=== PATIENT | male | born 1975 | race Two or more races ===

== ENCOUNTER 2025-05-05 10:00 | Inpatient (IN) | payer OTHER ==
[~2025-05-05] VITALS: Ht 172.7 cm; Wt 122.5 kg
[~2025-05-05 10:00] MED LIST: AVELOX ABC PAC400 MG PO; COZAAR50 MG; HUMALOG100 U/ML; LANTUS100 U/ML; METFORMIN HCL1000 MG; NASONEX17 GM NS; TYLENOL32 MG/ML PO
--- NOTE | 2025-05-05 10:10 | NUR ---
SE RECIBE PTE ALERTA Y ORIENTADO X3 QUIEN REFIERE TENER UN ABSCESO EN EL TESTICULO DERECHO. PTE REFIERE LLEVAR 5 KINNEY CON EL SHELBY QUE RON EMPEORADO. SE MIDEN S/V Y SE UBICA.
[2025-05-05] MEDS ORDERED: ONDANSETRON HCL 2 MG/ML VIAL ONE (10:42)
[2025-05-05] MEDS ORDERED: FAMOTIDINE/PF 20 MG/2 ML VIAL ONE (10:43)
[2025-05-05] MEDS ORDERED: PIPERACILLIN/TAZOBACTAM SODIUM 3.375 GM VIAL IV ONE ×2 (10:43→17:51)
[2025-05-05] MEDS ORDERED: FAMOTIDINE/PF 20 MG/2 ML VIAL IV ONE (10:45)
[2025-05-05] MEDS ORDERED: 0.9 % SODIUM CHLORIDE 1,000 ML IV ONE (10:45)
[2025-05-05] MEDS ORDERED: ONDANSETRON HCL 4 MG in DEXTROSE 5 % IN WATER 50 ML IV PRN (10:45)
[2025-05-05] MEDS ORDERED: MORPHINE SULFATE 4 MG/ML VIAL IV PRN (10:45)
--- NOTE | 2025-05-05 11:17 | NUR ---
SE EDUCA PTE SOBRE TX Y EL MISMO REFIERE ENTENDER Y ACEPTAR. SE PROCEDE A COLECTAR MUESTRAS DE LABORATORIO Y CANALIZAR BAJO MEDIDAS ASEPTICAS. SE ADMINISTRAN MEDICAMENTOS JUAN ORDEN MEDICA Y SE ENTREGA ENVASE PARA U/A. SE SHANIA EN BETHANY CON BARANDAS ELEVADAS Y NIVEL MAS BAJO DE LA MISMA.
[2025-05-05 11:20] LABS: BASO % 0.4 % (0.1-1.2); EOS # 0.13 (0.04-0.54); EOS % 0.9 % (0.7-7.0); LYMPH # 1.85 (1.18-3.74); LYMPH % 12.5 % (19.3-53.1); MEAN PLATELET VOLUME 10.00 fl (9.4-12.4); MONO # 0.84 (0.24-0.82); MONO % 5.7 % (4.7-12.5); NEUT # 11.83 (1.56-6.13); NEUT % 80.2 % (34.0-71.1); RED CELL DISTRIBUTION WIDTH 11.8 % (11.6-14.4)
[2025-05-05 11:33] LABS: ERYTHROCYTE SEDIMENTATION RATE 36 mm/hr (0-15)
[2025-05-05 11:50] LABS: INR 0.95
[2025-05-05] MEDS ORDERED: PIPERACILLIN/TAZOBACTAM SODIUM 3.375 GM in DEXTROSE 5 % IN WATER 100 ML IV SCH (12:00)
[2025-05-05 12:06] LABS: ALT/SGPT 21.0 U/L (12-78); AST/SGOT 9.0 U/L (15-37); BILIRUBIN TOTAL 0.49 mg/dL (0.3-1.2); BUN CREA RATIO 16.0 (7.0-25.0); CREATININE SERUM 1.03 mg/dL (0.70-1.30); GFR 77.41; GLOBULINA 3.4 G/DL (2.4-3.5)
[2025-05-05 12:14] LABS: OSMOLALITY SERUM 291.0 MOSM/KG (275-295)
[2025-05-05 12:15] LABS: GLUCOSE FASTING 415.0 mg/dL (65-100)
[2025-05-05] MEDS ORDERED: INSULIN LISPRO 1,000 UNIT/10 ML UNITS SUBCUTANEO PRN ×2 (12:30→19:30)
[2025-05-05] MEDS ORDERED: DEXTROSE 50 % IN WATER 0.5 G/ML DISP.SYRIN IV PRN ×2 (12:30→19:30)
[2025-05-05 12:31] LABS: URINE APPEARANCE Clear; URINE BILIRRUBIN Negative (NEGATIVE); URINE BLOOD Negative; URINE COLOR Yellow; URINE KETONE Trace (NEGATIVE); URINE LEUKOCYTE Negative; URINE NITRATE Negative; URINE PROTEIN Negative (NEGATIVE); URINE UROBILINOGEN 0.2 E.U./dl
[2025-05-05 12:35] LABS: URINE WBC 5.2 uL (0.0-23.2)
[2025-05-05 12:41] LABS: URINE BACTERIA 1.1 uL (0.0-1933); URINE CAST 0.00 uL (0.0-1.40); URINE EPITHELIAL CELLS 0.6 uL (0.0-38.8); URINE GLUCOSE >=1000 MG/DL (NEGATIVE); URINE RBC 0.4 uL (0.0-20.8)
[2025-05-05] MEDS ORDERED: INSULIN REGULAR, HUMAN 1,000 UNIT/10 ML UNITS SUBCUTANEO ONE (12:45)
[2025-05-05] MEDS ORDERED: INSULIN GLARGINE,HUM.REC.ANLOG 1,000 UNITS/10 ML UNITS SUBCUTANEO ONE ×2 (12:45→13:29)
[2025-05-05] MEDS ORDERED: MORPHINE SULFATE 2 MG/ML SYRINGE IV PRN (19:45)
[2025-05-05] MEDS ORDERED: ACETAMINOPHEN 500 MG GEL..CAP PO SCH (20:00)
[2025-05-05 20:31] VITALS: BP 115/87
[2025-05-05 22:07] VITALS: BP 122/79; O2SAT 95
[2025-05-06] MEDS ORDERED: PIPERACILLIN/TAZOBACTAM SODIUM 3.375 GM in 0.9 % SODIUM CHLORIDE 100 ML IV SCH
[2025-05-06 00:24] VITALS: BP 136/85; O2SAT 96
[2025-05-06 05:06] LABS: BASO % 0.4 % (0.1-1.2); EOS # 0.16 (0.04-0.54); EOS % 1.1 % (0.7-7.0); LYMPH # 2.18 (1.18-3.74); LYMPH % 15.6 % (19.3-53.1); MEAN PLATELET VOLUME 9.80 fl (9.4-12.4); MONO # 1.01 (0.24-0.82); MONO % 7.2 % (4.7-12.5); NEUT # 10.53 (1.56-6.13); NEUT % 75.3 % (34.0-71.1); RED CELL DISTRIBUTION WIDTH 11.6 % (11.6-14.4)
[2025-05-06 05:32] LABS: INR 0.98
[2025-05-06 05:34] LABS: BUN CREA RATIO 13.0 (7.0-25.0); CREATININE SERUM 0.8 mg/dL (0.70-1.30); GFR 103.62
[2025-05-06 05:38] LABS: OSMOLALITY SERUM 286.0 MOSM/KG (275-295)
[2025-05-06 05:39] LABS: GLUCOSE FASTING 274.0 mg/dL (65-100)
[2025-05-06] MEDS ORDERED: KETOROLAC TROMETHAMINE 30 MG VIAL IV STA (07:53)
[2025-05-06] MEDS ORDERED: KETOROLAC TROMETHAMINE 30 MG VIAL IV PRN (08:00)
[2025-05-06 08:12] VITALS: BP 119/80; O2SAT 95
[2025-05-06] MEDS ORDERED: FAMOTIDINE/PF 20 MG in 0.9 % SODIUM CHLORIDE 100 ML IV SCH (09:00)
[2025-05-06] MEDS ORDERED: ATORVASTATIN CALCIUM 40 MG TABLET PO SCH (09:00)
[2025-05-06] MEDS ORDERED: LOSARTAN POTASSIUM 100 MG TABLET PO SCH (09:00)
[2025-05-06 16:28] VITALS: BP 118/80; O2SAT 97
[2025-05-06] MEDS ORDERED: LINEZOLID 600 MG TABLET PO SCH (17:00)
[2025-05-06 20:05] LABS: URINE APPEARANCE Clear; URINE BILIRRUBIN Negative (NEGATIVE); URINE BLOOD Negative; URINE COLOR Yellow; URINE KETONE Trace (NEGATIVE); URINE LEUKOCYTE Negative; URINE NITRATE Negative; URINE PROTEIN Negative (NEGATIVE); URINE UROBILINOGEN 1.0 E.U./dl
[2025-05-06 20:06] LABS: URINE BACTERIA 6.8 uL (0.0-1933); URINE EPITHELIAL CELLS 3.2 uL (0.0-38.8)
[2025-05-06 20:12] LABS: URINE CAST 0.00 uL (0.0-1.40); URINE GLUCOSE >=1000 MG/DL (NEGATIVE); URINE RBC 0.9 uL (0.0-20.8); URINE WBC 1.6 uL (0.0-23.2)
[2025-05-07 02:23] VITALS: BP 138/92; O2SAT 94
[2025-05-07 08:19] LABS: ALT/SGPT 17.0 U/L (12-78); AST/SGOT 8.0 U/L (15-37); BILIRUBIN TOTAL 0.44 mg/dL (0.3-1.2); BUN CREA RATIO 15.0 (7.0-25.0); CREATININE SERUM 0.91 mg/dL (0.70-1.30); GFR 89.3; GLOBULINA 3.5 G/DL (2.4-3.5)
[2025-05-07 08:32] LABS: GLUCOSE FASTING 264.0 mg/dL (65-100); OSMOLALITY SERUM 289.0 MOSM/KG (275-295)
[2025-05-07 09:23] VITALS: BP 114/78; O2SAT 98
[2025-05-07] MEDS ORDERED: INSULIN GLARGINE,HUM.REC.ANLOG 1,000 UNITS/10 ML UNITS SUBCUTANEO NR (13:00)
[2025-05-07 18:18] VITALS: BP 118/81
[2025-05-08 00:24] VITALS: BP 128/88; O2SAT 97
[2025-05-08 05:25] LABS: BASO % 0.5 % (0.1-1.2); EOS # 0.37 (0.04-0.54); EOS % 4.5 % (0.7-7.0); LYMPH # 2.20 (1.18-3.74); LYMPH % 26.8 % (19.3-53.1); MEAN PLATELET VOLUME 9.50 fl (9.4-12.4); MONO # 0.69 (0.24-0.82); MONO % 8.4 % (4.7-12.5); NEUT # 4.90 (1.56-6.13); NEUT % 59.6 % (34.0-71.1); RED CELL DISTRIBUTION WIDTH 11.3 % (11.6-14.4)
[2025-05-08] MEDS ORDERED: PIPERACILLIN/TAZOBACTAM SODIUM 3.375 GM VIAL IV ONE (07:18)
[2025-05-08] MEDS ORDERED: FAMOTIDINE/PF 20 MG/2 ML VIAL ONE (07:19)
[2025-05-08 08:38] VITALS: BP 147/99; O2SAT 96
[2025-05-08] MEDS ORDERED: INSULIN GLARGINE,HUM.REC.ANLOG 1,000 UNITS/10 ML UNITS SUBCUTANEO SCH ×2 (09:00→21:00)
[2025-05-08] MEDS ORDERED: INSULIN LISPRO 1,000 UNIT/10 ML UNITS SUBCUTANEO STA (13:54)
[2025-05-08] MEDS ORDERED: INSULIN LISPRO 1,000 UNIT/10 ML UNITS SUBCUTANEO SCH (17:00)
[2025-05-08 17:47] VITALS: BP 135/85; O2SAT 96
[2025-05-08] MEDS ORDERED: AMPICILLIN SODIUM/SULBACTAM NA 3,000 MG VIAL IV SCH (18:00)
[2025-05-09 01:06] VITALS: BP 127/89; O2SAT 97
[2025-05-09 07:59] LABS: BUN CREA RATIO 18.0 (7.0-25.0); CREATININE SERUM 0.77 mg/dL (0.70-1.30); GFR 108.29; OSMOLALITY SERUM 292.0 MOSM/KG (275-295)
[2025-05-09 08:00] LABS: GLUCOSE FASTING 322.0 mg/dL (65-100)
[2025-05-09 09:00] VITALS: BP 118/92; O2SAT 97
[2025-05-09] MEDS ORDERED: ACETAMINOPHEN 500 MG GEL..CAP PO SCH (09:00)
[2025-05-09] MEDS ORDERED: TRAMADOL HCL 50 MG TABLET PO SCH (09:00)
[2025-05-09] MEDS ORDERED: GEMFIBROZIL 600 MG TABLET PO SCH (17:00)
[2025-05-09 18:41] VITALS: BP 156/107
[2025-05-09] MEDS ORDERED: INSULIN GLARGINE,HUM.REC.ANLOG 1,000 UNITS/10 ML UNITS SUBCUTANEO SCH (21:00)
[2025-05-10 01:33] VITALS: BP 144/98; O2SAT 97
[2025-05-10 08:52] VITALS: BP 137/90; O2SAT 98
[2025-05-10 18:59] VITALS: BP 121/82
[2025-05-11 03:09] VITALS: BP 125/85; O2SAT 97
[2025-05-11 09:02] VITALS: BP 148/90; O2SAT 99
[2025-05-11] MEDS ORDERED: INSULIN LISPRO 1,000 UNIT/10 ML UNITS SUBCUTANEO SCH (17:00)
[2025-05-11 18:37] VITALS: BP 130/84; O2SAT 97
[2025-05-11] MEDS ORDERED: INSULIN GLARGINE,HUM.REC.ANLOG 1,000 UNITS/10 ML UNITS SUBCUTANEO SCH (21:00)
[2025-05-12] VITALS: BP 108/71; O2SAT 95
[2025-05-12 08:59] VITALS: BP 124/92; O2SAT 95
[2025-05-12] MEDS ORDERED: INSULIN GLARGINE,HUM.REC.ANLOG 1,000 UNITS/10 ML UNITS SUBCUTANEO SCH (09:00)
[2025-05-12 19:23] VITALS: BP 127/85; O2SAT 95
[2025-05-13] VITALS: BP 117/77; O2SAT 96
[2025-05-13] MEDS ORDERED: INSULIN LISPRO 1,000 UNIT/10 ML UNITS SUBCUTANEO SCH (08:00)
[2025-05-13] MEDS ORDERED: INSULIN GLARGINE,HUM.REC.ANLOG 1,000 UNITS/10 ML UNITS SUBCUTANEO SCH ×2 (09:00→21:00)
[2025-05-13 09:56] VITALS: BP 132/90; O2SAT 98
== END 2025-05-13 13:26 | disposition home or self-care (01) | DRG 730 ==
LOC: ER 10:01 → MEDI 19:41
PROVIDERS: General Practice; Internal Medicine Endocrinology, Diabetes & Metabolism; Internal Medicine Infectious Disease; ADMIT Internal Medicine; ATTEND Internal Medicine
PROC: BV44ZZZ Ultrasonography of Scrotum (ICD-10-PCS; principal; 2025-05-05)
DX: N50.89 Other specified disorders of the male genital organs (principal); N49.2 Inflammatory disorders of scrotum; E11.65 Type 2 diabetes mellitus with hyperglycemia; E78.49 Other hyperlipidemia; I10 Essential (primary) hypertension; Z79.4 Long term (current) use of insulin; Z72.0 Tobacco use